=== PATIENT | male | born 1985 | race Caucasian/White ===

== ENCOUNTER 2021-09-14 16:26 | Emergency (ER) | payer MEDICARE, OTHER ==
[2021-09-14 17:46] LABS: BASOPHIL 0.5 % (0-2); EOSINOPHIL 2.1 % (0-5); HCT 44.4 % (42.0-52.0); HGB 15.8 g/dl (13.2-18.0); LYMPHOCYTE 42.8 % (15-48); MCH 29.7 pg (25.0-31.0); MCHC 35.6 g/dL (32.0-36.0); MCV 83.5 fL (78.0-100.0); MONOCYTE 6.5 % (0-12); MPV 9.2 fL (6.0-9.5); NRBC 0; PLT 246 K/uL (150-400); RBC 5.32 M/uL (4.70-6.00); WBC 8.1 K/uL (4.0-10.5)
[2021-09-14 18:04] LABS: BUN/CREAT RATIO (CALC) 22.7 RATIO; CREATININE 0.88 mg/dL (0.67-1.17); POTASSIUM 3.6 mmol/L (3.5-5.1)
== END 2021-09-14 19:05 | disposition home or self-care (01) ==
LOC: FER 16:26
PROVIDERS: Nurse Practitioner Family
DX: R07.89 Other chest pain (principal); I10 Essential (primary) hypertension; F41.9 Anxiety disorder, unspecified; Z28.310 Unvaccinated for COVID-19
CPT/HCPCS: 36415; 71045; 80048; 83735; 84484; 85025; 85379; 93005